=== PATIENT | male | born 1955 | race Caucasian/White ===

== ENCOUNTER 2025-10-23 08:46 | Outpatient (CLI) | payer MEDICARE, MEDICAID ==
[~2025-10-23 08:46] MED LIST: AZIT500T9 PO; HYDR-4383 PO; PSEU-259 PO; TAM75C PO
--- NOTE | 2025-10-23 10:26 | RADIOLOGY REPORT ---
Exam: CT CT CHEST LOW DOSE Reason for study/Clinical History: ENCNTR SCREEN FOR MALIGNANT NEOPLASM OF RESPIRATORY ORGANS Comparison Study: None Exam Date: 10/23/2025 09:04 AM TECHNIQUE: Multidetector CT of the chest was performed from the lung apices to the upper abdomen without the use of intravenous contract. Axial, coronal and sagittal multiplanar reformats were performed. Radiation Dose Information: CT Dose: CTDI volume is 2.8 mGy. Dose-length product is 100 mGy*cm The dose indicators for CT are the volume Computed Tomography (CT) Dose Index (CTDIvol) and the Dose Length Product (DLP), and are measured in units of mGy and mGy-cm, respectively. These indicators are not patient dose, but values generated from the CT scanner acquisition factors. The report includes radiation exposure data for exposures received during this examination. Findings: Lower neck: Unremarkable. Lungs and Pleura: No consolidation or suspicious pulmonary nodules. Mild diffuse bronchial wall thickening. No pleural effusions. Lymph nodes: No mediastinal, hilar, or axillary lymphadenopathy. Cardiovascular and Mediastinum: No significant pericardial effusion. Scattered coronary calcifications. Osseous and soft tissues: No suspicious osseous lesions. Chronic appearing anterior right rib fracture. Upper abdomen: No acute abnormality in the visualized upper abdomen. IMPRESSION: No acute intrathoracic abnormality. No suspicious pulmonary nodules. Mild diffuse bronchial wall thickening may be infectious or inflammatory. Lung RADS 1: Recommend follow-up CT 1 year.
== END 2025-10-23 23:59 | disposition home or self-care (01) ==
LOC: RAD 08:46
DX: S22.31XA Fracture of one rib, right side, initial encounter for closed fracture (principal); Z12.2 Encounter for screening for malignant neoplasm of respiratory organs; F17.210 Nicotine dependence, cigarettes, uncomplicated; X58.XXXA Exposure to other specified factors, initial encounter; Y93.89 Activity, other specified; Y92.89 Other specified places as the place of occurrence of the external cause; Y99.8 Other external cause status
CPT/HCPCS: 71271